=== PATIENT | female | born 1955 | race Caucasian/White ===

== ENCOUNTER 2016-06-25 16:24 | Emergency (ER) | payer BC ==
[~2016-06-25] VITALS: Ht 165.1 cm; Wt 82.0 kg
[~2016-06-25 16:24] MED LIST: ACET325T33 PO; ALBU18HF INHALATION; ALBU8.5H3 INH; ALBU8.5H5 INH; AMLO5TAB4 PO; AZIT250T94 PO; CIPR500T4 PO; CLOT24CR4 TOP; CLOT30CR24 TOP; FLUC150T17 PO; FLUT9.9S NASAL; GUAI118L22 PO; IBUP-1542 PO; PANT40TA4 PO; PRAV10TA43 PO; PRED20TA PO; SERT100T PO; TRIA15OI9 TOP
[2016-06-25 16:27] VITALS: Ht 165.1 cm; Wt 82.0 kg
[2016-06-25] MEDS ORDERED: SOD CHLORIDE 0.9% 1,000 ML IV STA (17:04)
[2016-06-25] MEDS ORDERED: ONDANSETRON 4 MG INJ IV STA (17:04)
--- NOTE | 2016-06-25 17:28 | ERD ---
ER Documentation Chief Complaint Date/Time DATE: 06/25/16 TIME: 17:26 Chief Complaint N&V X 1 WEEK, DENIES FEVER HPI 61-year-old female with a history of hypertension recently returned from [facility] 10 days ago comes in with nausea, vomiting, diarrhea and epigastric abdominal pain on and off for a week now. Patient reports nonbloody nonbilious emesis, loose stools, and epigastric abdominal pain. She denies any fevers. No headache. ROS All systems reviewed and are negative except as per history of present illness. Medications Home Meds Active Scripts Metronidazole* (Flagyl*) 500 Mg Tablet, 500 MG PO TID for 7 Days, TAB Prov:CHRISTIANA CRONIN PA-C 06/25/16 Azithromycin* (Zithromax*) 500 Mg Tablet, 500 MG PO DAILY for 3 Days, TAB Prov:CHRISTIANA CRONIN PA-C 06/25/16 Ondansetron (Ondansetron Odt) 4 Mg Tab.rapdis, 4 MG PO Q6H Y for NAUSEA AND/OR VOMITING, #10 TAB Prov:CHRISTIANA CRONIN PA-C 06/25/16 Ciprofloxacin Hcl* (Ciprofloxacin Hcl*) 500 Mg Tablet, 500 MG PO BID for 7 Days , TAB Prov:MERVIN MOYA PA-C 02/11/16 Fluticasone Propionate (Flonase Allergy Relief) 9.9 Ml [place].susp, 1 SPRAY NASAL DAILY, #1 BOTTLE TO EACH NOSTRIL Prov:FERNY WEN NP 01/27/16 Clotrimazole* (Clotrimazole* AF) 1% - 30 Gm Cream.gm., 1 APPLIC TOP BID for 7 Days, TUB Prov:FERNY WEN NP 01/27/16 Albuterol Sulfate* (Proair HFA*) 8.5 Gm Hfa.aer.ad, 2 PUFF INH Q4, #1 INHALER Prov:MERVIN MOYA PA-C 01/13/16 Ciprofloxacin Hcl* (Ciprofloxacin Hcl*) 500 Mg Tablet, 500 MG PO BID for 10 Days , TAB Prov:MERVIN MOYA PA-C 01/13/16 Triamcinolone Acetonide (Triamcinolone Acetonide) 0.5% - 15 Gm Oint..gm., 1 APPLIC TOP BID, #1 TUB Prov:EDILMA RIVERA DO 12/15/15 Prednisone* (Prednisone*) 20 Mg Tab, 40 MG PO DAILY for 4 Days, TAB Prov:EDILMA RIVERA DO 12/15/15 Prednisone* (Prednisone*) 20 Mg Tab, 40 MG PO DAILY for 4 Days, TAB Prov:CUAUHTEMOC ALTAMIRANO DO 11/04/15 Albuterol Sulfate* (Ventolin HFA*) 18 Gm Hfa.aer.ad, 2 PUFF INHALATION Q4H, #1 INHALER Prov:SHORTY DA SILVA PA-C 09/10/15 Prednisone* (Prednisone*) 20 Mg Tab, 40 MG PO DAILY for 4 Days, TAB Prov:SHORTY DA SILVA PA-C 09/10/15 Acetaminophen* (Tylenol*) 325 Mg Tablet, 2 TAB PO Q6 Y for PAIN AND OR ELEVATED TEMP, #20 TAB Prov:FERNY WEN NP 07/08/15 Guaifenesin/Codeine Phosphate (CHERATUSSIN AC SYRUP) 118 Ml Liquid, 10 ML PO Q6H Y for COUGH, #118 ML Prov:FERNY WEN NP 07/08/15 Ibuprofen* (Motrin*) 600 Mg Tab, 600 MG PO Q6, #14 TAB Prov:EDWARD OLSON MD 05/06/15 Clotrimazole* (Lotrimin* AF) 1% - 24 Gm Cream.gm., 1 APPLIC TOP BID for 7 Days, TUB Prov:EDWARD OLSON MD 05/06/15 Fluconazole* (Diflucan*) 150 Mg Tablet, 150 MG PO ONCE, #1 TAB Prov:EDWARD OLSON MD 05/06/15 Prednisone* (Prednisone*) 20 Mg Tab, 60 MG PO DAILY for 5 Days Prov:HAMMAD HOLLOWAY 10/26/14 Azithromycin* (Zithromax*) 250 Mg Tablet, 250 MG PO .MARILU DIRECTED, #6 TAB TAKE 500 MG (2 TABS) THE FIRST DAY THEN 250 MG (1 TAB) DAYS 2-5 Prov:HAMMAD HOLLOWAY 10/26/14 Albuterol Sulfate* (Albuterol Sulfate* HFA) 8.5 Gm Hfa.aer.ad, 1-2 PUFF INH Q4 Y for SHORTNESS OF BREATH, #1 EA Prov:HAMMAD HOLLOWAY 10/26/14 Reported Medications Pravastatin Sodium* (Pravastatin Sodium*) 10 Mg Tablet, 10 MG PO HS, TAB 11/04/15 Sertraline Hcl* (Zoloft*) 100 Mg Tablet, 100 MG PO DAILY, #30 TAB 11/04/15 Amlodipine Besylate* (Norvasc*) 5 Mg Tablet, 5 MG PO DAILY, TAB 11/04/15 Pantoprazole* (Pantoprazole*) 40 Mg Tablet.dr, 40 MG PO DAILY, TAB 11/04/15 Allergies Allergies: Coded Allergies: No Known Allergy (Unverified , 01/27/16) PMhx/Soc History of Surgery: No Anesthesia Reaction: No Hx Neurological Disorder: No Hx Respiratory Disorders: No Hx Cardiac Disorders: Yes (htn) Hx Psychiatric Problems: No Hx Miscellaneous Medical Probl: No Hx Alcohol Use: No Hx Substance Use: No Hx Tobacco Use: No Physical Exam Vitals Vital Signs Date Time Temp Pulse Resp B/P Pulse Ox O2 Delivery O2 Flow Rate FiO2 06/25/16 16:27 98.4 85 20 159/78 98 Physical Exam General: Well-developed, well-nourished. The patient appears in no acute distress. HEENT: Head is normocephalic, atraumatic. No scleral icterus. Neck: Supple. Nontender. Lungs: Clear to auscultation. Normal air movement. Heart: Regular rate and rhythm. S1 and S2 are normal. No murmurs, gallops, or rubs. Abdomen: Soft, mild epigastric discomfort, nondistended. Bowel sounds are normoactive. Extremities: No clubbing or cyanosis. Normal pulses. Moving extremities x 4. No weakness. Neurologic: Alert and oriented 3. No focal deficits. Skin: Normal turgor. No rash or lesions. Result Diagram: 06/25/16 1720 06/25/16 1720 Results 24 hrs Laboratory Tests Test 06/25/16 17:20 Alanine Aminotransferase (ALT/SGPT) 176IU/L Albumin 4.0g/dl Albumin/Globulin Ratio 1.33 Alkaline Phosphatase 103IU/L Anion Gap 16 Aspartate Amino Transf (AST/SGOT) 119IU/L Basophils # 0.010^3/ul Basophils % 0.5% Blood Urea Nitrogen 13mg/dl Calcium Level 9.3mg/dl Carbon Dioxide Level 27mmol/L Chloride Level 104mmol/L Creatinine 0.54mg/dl Direct Bilirubin 0.00mg/dl Eosinophils # 0.210^3/ul Eosinophils % 1.8% Globulin 3.00g/dl Glucose Level 103mg/dl Hematocrit 42.7% Hemoglobin 14.4g/dl Indirect Bilirubin 0.1mg/dl Lipase 100U/L Lymphocytes # 2.210^3/ul Lymphocytes % 25.3% Mean Corpuscular Hemoglobin 29.4pg Mean Corpuscular Hemoglobin Concent 33.8g/dl Mean Corpuscular Volume 87.1fl Mean Platelet Volume 9.1fl Monocytes # 0.610^3/ul Monocytes % 7.4% Neutrophils # 5.510^3/ul Neutrophils % 65.0% Nucleated Red Blood Cells # 0.010^3/ul Nucleated Red Blood Cells % 0.0/100WBC Platelet Count 74910^3/UL Potassium Level 4.1mmol/L Red Blood Count 4.9110^6/ul Red Cell Distribution Width 14.1% Sodium Level 143mmol/L Total Bilirubin 0.1mg/dl Total Protein 7.0g/dl Urine Bilirubin NEGATIVE Urine Clarity CLEAR Urine Color LT. YELLOW Urine Glucose NEGATIVE% Urine Hemoglobin NEGATIVE Urine Ketones NEGATIVE Urine Leukocyte Esterase 1+ Urine Microscopic RBC 0-2/HPF Urine Microscopic WBC 0-2/HPF Urine Nitrite NEGATIVE Urine Specific [place] 1.010 Urine Squamous Epithelial Cells RARE Urine Total Protein NEGATIVE Urine Urobilinogen 0.2 E.U./dL Urine pH 7.5 White Blood Count 8.510^3/ul Current Medications Medications (Trade) Dose Ordered Sig/Sal Route PRN Reason Start Time Stop Time Status Last Admin Dose Admin Sodium Chloride (NS) 1,000 ml @ 1,000 mls/hr Q1H STAT IV 06/25/16 17:04 06/25/16 18:03 DC 06/25/16 17:28 Ondansetron HCl (Zofran Inj) 4 mg ONCE STAT IV 06/25/16 17:04 06/25/16 17:05 DC 06/25/16 17:28 EKG: Reviewed by, Dr. Olson Rate/Rhythm: Normal Sinus Rhythm, rate of 76 QRS, ST, T-waves: No changes consistent w/ acute ischemia Impression: No evidence of ischemia or arrhythmia PROCEDURE: Right upper quadrant abdominal ultrasound. CLINICAL INDICATION: Abdominal pain TECHNIQUE: Nicole scale and color doppler ultrasound images of the right upper quadrant. COMPARISON: None FINDINGS: Pancreas: Visualized portions appear of normal echogenicity, no focal lesions. Liver: Morphology: Normal in size and contour. Echogenicity: Normal. Focal lesions: None. Main portal vein: Patent with hepatopetal flow. Biliary System: Normal appearing gallbladder wall. No gallstones seen. No intrahepatic biliary dilatation. Common bile duct measures 1.9 mm in maximal dimension. Kidneys: Right 9.1 cm in length. Right renal cortical thickness is preserved. Normal echogenicity. No hydronephrosis. No renal calculi. No focal lesions. No free fluid identified. IMPRESSION: Normal gallbladder without gallstones. Normal examination. RPTAT: AADD .Hammad Gabriel MD, MD Date Time Electronically viewed and signed by .Hammad Gabriel MD, MD on 06/25/2016 19:16 .B/ Procedures/MDM ED course: Labs and urine obtained, she was given a fluid bolus normal saline 1 L and Zofran 4 mg IV. She is feeling much better at time. MDM: 58-year-old female comes in with nausea, vomiting diarrhea over the past week after returning from [facility]. Clinically she is well appearing, hydrated, no signs of an acute surgical abdominal process. She does have mildly elevated LFTs, follow-up with gallbladder ultrasound was unremarkable. This is consistent with likely traveler's diarrhea and will be treated with Zithromax and Flagyl. No evidence of acute hepatobiliary process, pancreatitis , dissection, acute coronary syndrome Departure Diagnosis: Primary Impression: Nausea vomiting and diarrhea Condition: CHRISTIANA Raman PA-C Jun 25, 2016 17:27
[2016-06-25 17:40] LABS: BASOPHILS % 0.5 % (0.0-2.0); EOSINOPHILS # 0.2 10^3/ul (0.0-0.5); EOSINOPHILS % 1.8 % (0.0-7.0); HEMATOCRIT 42.7 % (37.0-47.0); HEMOGLOBIN 14.4 g/dl (12.0-16.0); LYMPHOCYTES # 2.2 10^3/ul (0.8-2.9); LYMPHOCYTES % 25.3 % (15.0-51.0); MEAN CORPUSCULAR HEMOGLOBIN 29.4 pg (29.0-33.0); MEAN CORPUSCULAR HGB CONC 33.8 g/dl (32.0-37.0); MEAN CORPUSCULAR VOLUME 87.1 fl (82.0-101.0); MEAN PLATELET VOLUME 9.1 fl (7.4-10.4); MONOCYTE # 0.6 10^3/ul (0.3-0.9); MONOCYTES % 7.4 % (0.0-11.0); NEUTROPHIL # 5.5 10^3/ul (1.6-7.5); PLATELET COUNT 236 10^3/UL (140-440); RED BLOOD COUNT 4.91 10^6/ul (4.20-5.40); RED CELL DISTRIBUTION WIDTH 14.1 % (11.5-14.5); UNCORRECTED WBC 8.5 10^3/ul (4.8-10.8); WHITE BLOOD COUNT 8.5 10^3/ul (4.8-10.8)
[2016-06-25 17:42] LABS: CONDITION 1
[2016-06-25 17:49] LABS: POTASSIUM 4.1 mmol/L (3.5-5.1)
[2016-06-25 17:50] LABS: CREATININE 0.54 mg/dl (0.44-1.00)
[2016-06-25 17:51] LABS: ADD UMIC YES; ALBUMIN/GLOBULIN RATIO 1.33; BILIRUBIN,INDIRECT 0.1 mg/dl (0-1.1); BILIRUBIN,TOTAL 0.1 mg/dl (0.2-1.3); CALCIUM 9.3 mg/dl (8.4-10.2); URINE BILIRUBIN (Dip) NEGATIVE (NEGATIVE); URINE BLOOD (Dip) NEGATIVE (NEGATIVE); URINE COLOR LT. YELLOW (YELLOW); URINE GLUCOSE (Dip) NEGATIVE (NEGATIVE); URINE KETONES (Dip) NEGATIVE (NEGATIVE); URINE LEUKOCYTE ESTERASE (Dip) 1+ (NEGATIVE); URINE NITRITE (Dip) NEGATIVE (NEGATIVE); URINE TOTAL PROTEIN (Dip) NEGATIVE (NEGATIVE); URINE UROBILINOGEN (Dip) 0.2 E.U./dL (0.1-1.0)
[2016-06-25 18:00] LABS: SQUAMOUS EPITHELIAL CELL,UR RARE; URINE RBCS 0-2 /HPF (0)
--- NOTE | 2016-06-25 19:17 | RADRPT ---
PROCEDURE: Right upper quadrant abdominal ultrasound. CLINICAL INDICATION: Abdominal pain TECHNIQUE: Nicole scale and color doppler ultrasound images of the right upper quadrant. COMPARISON: None FINDINGS: Pancreas: Visualized portions appear of normal echogenicity, no focal lesions. Liver: Morphology: Normal in size and contour. Echogenicity: Normal. Focal lesions: None. Main portal vein: Patent with hepatopetal flow. Biliary System: Normal appearing gallbladder wall. No gallstones seen. No intrahepatic biliary dilatation. Common bile duct measures 1.9 mm in maximal dimension. Kidneys: Right 9.1 cm in length. Right renal cortical thickness is preserved. Normal echogenicity. No hydronephrosis. No renal calculi. No focal lesions. No free fluid identified. IMPRESSION: Normal gallbladder without gallstones. Normal examination. RPTAT: AADD .Hammad Gabriel MD, MD Date Time Electronically viewed and signed by .Hammad Gabriel MD, on 06/25/2016 19:16 .B/
[2016-06-25] MEDS ORDERED: AZIT500T3 PO (19:35)
[2016-06-25] MEDS ORDERED: ONDA4TAB14 PO (19:35)
[2016-06-25] MEDS ORDERED: METR500T PO (19:35)
== END 2016-06-25 19:51 | disposition home or self-care (01) ==
LOC: FTE 16:24
DX: R11.2 Nausea with vomiting, unspecified (principal); R19.7 Diarrhea, unspecified; I10 Essential (primary) hypertension
CPT/HCPCS: 36415; 76705; 80053; 81001; 83690; 85025; 93005; 96361; 96374; 99285; J2405; J7030; 81003

== ENCOUNTER 2016-07-22 20:32 | Emergency (ER) | payer BC ==
[~2016-07-22] VITALS: Ht 160 cm; Wt 82.0 kg
[~2016-07-22 20:32] MED LIST changes: +AZIT500T3 PO; +METR500T PO; +ONDA4TAB14 PO
[2016-07-22 21:42] VITALS: Ht 160 cm; Wt 82.0 kg
[2016-07-22] MEDS ORDERED: DIPHTH/TET/ACEL PERTUSS (ADULT) 0.5 ML VIAL IM* ONE (23:30)
--- NOTE | 2016-07-22 23:36 | ERD ---
ER Documentation Chief Complaint Date/Time DATE: 07/22/16 TIME: 23:34 Chief Complaint sp trip and fall, facial abrasion, left knee abrasion HPI This 61-year-old female presents here in emergency department for complaints of left knee abrasion and pain, facial pain, headache after tripping and falling this morning. Patient tripped and fell, landed in the facial area and left knee area, some bruising and abrasions in the facial area, unknown loss of consciousness. Patient denies any dizziness. Patient denies any vomiting. Patient is complaining of pain on affected areas, throbbing pain, 4/and scale, is worse upon touching the area, and movement of the left knee. Patient denies any deformity. Patient's able to ambulate with steady gait. Patient denies any changes in balance or memory. Patient denies any dizziness. ROS All systems reviewed and are negative except as per history of present illness. Medications Home Meds Active Scripts Metronidazole* (Flagyl*) 500 Mg Tablet, 500 MG PO TID for 7 Days, TAB Prov:CHRISTIANA CRONIN PA-C 06/25/16 Azithromycin* (Zithromax*) 500 Mg Tablet, 500 MG PO DAILY for 3 Days, TAB Prov:CHRISTIANA CRONIN PA-C 06/25/16 Ondansetron (Ondansetron Odt) 4 Mg Tab.rapdis, 4 MG PO Q6H Y for NAUSEA AND/OR VOMITING, #10 TAB Prov:CHRISTIANA CRONIN PA-C 06/25/16 Ciprofloxacin Hcl* (Ciprofloxacin Hcl*) 500 Mg Tablet, 500 MG PO BID for 7 Days , TAB Prov:MERVIN MOYA PA-C 02/11/16 Fluticasone Propionate (Flonase Allergy Relief) 9.9 Ml [place].susp, 1 SPRAY NASAL DAILY, #1 BOTTLE TO EACH NOSTRIL Prov:FERNY WEN NP 01/27/16 Clotrimazole* (Clotrimazole* AF) 1% - 30 Gm Cream.gm., 1 APPLIC TOP BID for 7 Days, TUB Prov:FERNY WEN NP 01/27/16 Albuterol Sulfate* (Proair HFA*) 8.5 Gm Hfa.aer.ad, 2 PUFF INH Q4, #1 INHALER Prov:MERVIN MOYA PA-C 01/13/16 Ciprofloxacin Hcl* (Ciprofloxacin Hcl*) 500 Mg Tablet, 500 MG PO BID for 10 Days , TAB Prov:MERVIN MOYA PA-C 01/13/16 Triamcinolone Acetonide (Triamcinolone Acetonide) 0.5% - 15 Gm Oint..gm., 1 APPLIC TOP BID, #1 TUB [facility] 12/15/15 Prednisone* (Prednisone*) 20 Mg Tab, 40 MG PO DAILY for 4 Days, TAB [facility] 12/15/15 Prednisone* (Prednisone*) 20 Mg Tab, 40 MG PO DAILY for 4 Days, TAB Prov:CUAUHTEMOC ALTAMIRANO DO 11/04/15 Albuterol Sulfate* (Ventolin HFA*) 18 Gm Hfa.aer.ad, 2 PUFF INHALATION Q4H, #1 INHALER Prov:SHORTY DA SILVA PA-C 09/10/15 Prednisone* (Prednisone*) 20 Mg Tab, 40 MG PO DAILY for 4 Days, TAB Prov:SHORTY DA SILVA PA-C 09/10/15 Acetaminophen* (Tylenol*) 325 Mg Tablet, 2 TAB PO Q6 Y for PAIN AND OR ELEVATED TEMP, #20 TAB Prov:FERNY WEN NP 07/08/15 Guaifenesin/Codeine Phosphate (CHERATUSSIN AC SYRUP) 118 Ml Liquid, 10 ML PO Q6H Y for COUGH, #118 ML Prov:FERNY WEN NP 07/08/15 Ibuprofen* (Motrin*) 600 Mg Tab, 600 MG PO Q6, #14 TAB Prov:EDWARD DE LA ROSA MD 05/06/15 Clotrimazole* (Lotrimin* AF) 1% - 24 Gm Cream.gm., 1 APPLIC TOP BID for 7 Days, TUB Prov:EDWARD DE LA ROSA MD 05/06/15 Fluconazole* (Diflucan*) 150 Mg Tablet, 150 MG PO ONCE, #1 TAB Prov:EDWARD DE LA ROSA MD 05/06/15 Prednisone* (Prednisone*) 20 Mg Tab, 60 MG PO DAILY for 5 Days Prov:AVIS HOLLOWAY 10/26/14 Azithromycin* (Zithromax*) 250 Mg Tablet, 250 MG PO .ZPACK DIRECTED, #6 TAB TAKE 500 MG (2 TABS) THE FIRST DAY THEN 250 MG (1 TAB) DAYS 2-5 Prov:AVIS HOLLOWAY 10/26/14 Albuterol Sulfate* (Albuterol Sulfate* HFA) 8.5 Gm Hfa.aer.ad, 1-2 PUFF INH Q4 Y for SHORTNESS OF BREATH, #1 EA Prov:AVIS HOLLOWAY 10/26/14 Reported Medications Pravastatin Sodium* (Pravastatin Sodium*) 10 Mg Tablet, 10 MG PO HS, TAB 11/04/15 Sertraline Hcl* (Zoloft*) 100 Mg Tablet, 100 MG PO DAILY, #30 TAB 11/04/15 Amlodipine Besylate* (Norvasc*) 5 Mg Tablet, 5 MG PO DAILY, TAB 11/04/15 Pantoprazole* (Pantoprazole*) 40 Mg Tablet.dr, 40 MG PO DAILY, TAB 11/04/15 Allergies Allergies: Coded Allergies: No Known Allergy (Unverified , 01/27/16) PMhx/Soc History of Surgery: Yes (finger surgery) Anesthesia Reaction: No Hx Neurological Disorder: No Hx Respiratory Disorders: No Hx Cardiac Disorders: Yes (htn, dyslipidemia) Hx Psychiatric Problems: No Hx Miscellaneous Medical Probl: No (ARTHRITIS) Hx Alcohol Use: No Hx Substance Use: No Hx Tobacco Use: No FmHx Family History: No coronary disease, No diabetes, No other Physical Exam Vitals Vital Signs Date Time Temp Pulse Resp B/P Pulse Ox O2 Delivery O2 Flow Rate FiO2 07/22/16 21:42 98.2 81 20 178/90 100 Physical Exam GENERAL: The patient is well developed and appropriate for usual state of health, in no apparent distress. CHEST: Clear to auscultation bilaterally. There are no rales, wheezes or rhonchi. HEART: Regular rate and rhythm. No murmurs, clicks, rubs or gallops. No S3 or S4. ABDOMEN: Soft, nontender and nondistended. Good bowel sounds. No rebound or guarding. No gross peritonitis. No gross organomegaly or masses. No Cervantes sign or McBurney point tenderness. BACK: No midline or flank tenderness. EXTREMITIES: Able to do full range of motion of the left knee without any restriction. Equal pulses bilaterally. Full range of motion of other joints of the body. Grossly neurovascularly intact. NEURO: Alert and oriented. Cranial nerves 2-12 intact. Motor strength in all 4 extremities with 5/5 strength. Sensation grossly intact. Normal speech and gait. Negative Romberg sign. Negative pronator drift. Bilateral eyes are PERRL EOM intact. SKIN: Noted ecchymosis and abrasion all over the facial area, bruising and abrasions noted in the left knee. There is no apparent rash or petechia. The skin is warm and dry. HEMATOLOGIC AND LYMPHATIC: There is no evidence of excessive bruising or lymphedema. No gross cervical, axillary, or inguinal lymphadenopathy. Results 24 hrs Current Medications Medications (Trade) Dose Ordered Sig/Sal Route PRN Reason Start Time Stop Time Status Last Admin Dose Admin Diphtheria/ Tetanus/Acell Pertussis (Adacel) 0.5 ml ONCE ONCE IM* 07/22/16 23:30 07/22/16 23:31 DC Tdap was given to prevent tetanus. Patient tolerated medication well. PROCEDURE: CT brain without contrast CLINICAL INDICATION: Head injury. Post traumatic headaches. TECHNIQUE: A CT of the brain was performed utilizing axial sections from the skull base through the vertex without contrast. Sagittal and coronal images were also reformatted. The exam CTDIvol = 44.40 mGy and DLP = 810.25 mGy-cm. COMPARISON: None available FINDINGS: No acute intracranial hemorrhage is identified. There is no mass effect or midline shift. No extra-axial fluid collection is seen. The ventricles and sulci are within normal limits for size and configuration for the patient's provided age of 61 years. The density of the brain is within normal limits. Nicole-white differentiation is preserved. The osseous structures are unremarkable. The mastoid air cells and visualized paranasal sinuses are clear. RPTAT:HJJR IMPRESSION: Unremarkable noncontrast CT of the brain for the patient's age. Physician Shannan Date Time Electronically viewed and signed by Physician Shannan on 07/23/2016 00:07 JR/ CC: JANA BEST CATALOGUE LIBRARIAN PROCEDURE: CT facial bones without contrast CLINICAL INDICATION: Facial bone pain. TECHNIQUE: A CT of the face without contrast was performed utilizing axial sections from the mandible through the orbits. Coronal and sagittal images were also reformatted. The exam CTDIvol = 29.45 mGy and DLP = 547.58 mGy-cm. COMPARISON: None available. FINDINGS: Frontal bone: Intact with the sinuses clear bilaterally. No fracture is present. Ethmoid bone: Incidental osteoma in the right middle air cells, the sinuses are clear. The medial orbital salas are intact. Maxilla: Intact, the sinuses demonstrate trace mucosal thickening along the left floor, the right side is clear. Nasal bones: Intact bilaterally. Zygomata: Intact bilaterally. Sphenoid bone: Intact, the sinuses are clear. Mandible: Intact, the temporal mandibular joints are unremarkable. Temporal bones: No fractures are seen, the mastoid air cells are clear bilaterally. Soft tissues: Unremarkable. RPTAT:HJJR IMPRESSION: 1. No evidence of acute facial bone abnormality. 2. Incidental tiny osteoma within the right ethmoid air cells. 3. Trace mucosal thickening of the left maxillary sinus. Physician Shannan Date Time Electronically viewed and signed by Ricky Hendricks Physician on 07/23/2016 00:10 JR/ CC: JANA BEST CATALOGUE LIBRARIAN PROCEDURE: XR Knee. CLINICAL INDICATION: Post traumatic left knee pain after a fall TECHNIQUE: AP, cross-table lateral and oblique views of the left knee were obtained. COMPARISON: None. FINDINGS: No fracture or osseous lesion is identified. There is no evidence for dislocation. Mineralization is within normal limits. Mild narrowing of the medial and lateral joint spaces is present. No evidence of effusion or soft tissue swelling is identified. RPTAT:HJJR IMPRESSION: Mild joint space narrowing without acute post traumatic abnormality of the left knee. Physician Shannan Date Time Electronically viewed and signed by Ricky Hendricks Physician on 07/23/2016 00:45 JR/ CC: JANA BEST CATALOGUE LIBRARIAN Procedures/MDM Medical Decision Making: Patient's pain is most likely consistent with a contusion or a sprain. There is no suspicion for neurovascular compromise. Patient has intact sensation and circulation of the affected extremity. There is low suspicion for septic arthritis. Patient does not have any fever. Radiology exams of the affected area does not show any fracture or dislocation. Patient's headache was female from head concussion. Patient has also has multiple abrasions and contusions in the facial area. There is low suspicion for neurological emergencies at this time since patients neurologic exam is normal. Patient did not have any vomiting, changes in balance or memory after incident. Patients CT scan of the head does not show any neurological emergencies at this time. no Fractures noted in the face. Disposition: Home. Patient is given prescription for Tylenol for pain and tramadol for severe pain. Patient was advised to elevate the affected area and apply ice on affected area. Patient was advised that if symptoms are worse, numbness, tingling, high fever, unable to move joint, worsening symptoms, to return to emergency department immediately. Otherwise, patient is advised to follow up with the primary care doctor in 5-7 days for reevaluation of symptoms. : Departure Diagnosis: Primary Impression: Concussion Encounter type: initial encounter Loss of consciousness presence/duration: without LOC Qualified Code: S06.0X0A - Concussion, without loss of consciousness, initial encounter Additional Impressions: Facial contusion Encounter type: initial encounter Qualified Code: S00.83XA - Facial contusion, initial encounter Abrasions of multiple sites Left knee pain Chronicity: acute Qualified Code: M25.562 - Acute pain of left knee Condition: Stable Patient Instructions: Abrasion, Concussion, Facial Contusion, No Wakeup, Knee Pain, Uncertain Cause Additional Instructions: Patient is given prescription for Tylenol for pain and tramadol for severe pain. Patient was advised to elevate the affected area and apply ice on affected area. Patient was advised that if symptoms are worse, numbness, tingling, high fever, unable to move joint, worsening symptoms, to return to emergency department immediately. Otherwise, patient is advised to follow up with the primary care doctor in 5-7 days for reevaluation of symptoms.: JANA BEST NP Jul 22, 2016 23:36
--- NOTE | 2016-07-23 00:07 | RADRPT ---
PROCEDURE: CT brain without contrast CLINICAL INDICATION: Head injury. Post traumatic headaches. TECHNIQUE: A CT of the brain was performed utilizing axial sections from the skull base through th e vertex without contrast. Sagittal and coronal images were also reformatted. The exam CTDIvol = 44. 40 mGy and DLP = 810.25 mGy-cm. COMPARISON: None available FINDINGS: No acute intracranial hemorrhage is identified. There is no mass effect or midline shift. No extra -axial fluid collection is seen. The ventricles and sulci are within normal limits for size and con figuration for the patient's provided age of 61 years. The density of the brain is within normal li mits. Nicole-white differentiation is preserved. The osseous structures are unremarkable. The mastoid air cells and visualized paranasal sinuses are clear. RPTAT:HJJR IMPRESSION: Unremarkable noncontrast CT of the brain for the patient's age. Physician Shannan Date Time Electronically viewed and signed by Physician Shannan on 07/23/2016 00:07 /
--- NOTE | 2016-07-23 00:11 | RADRPT ---
PROCEDURE: CT facial bones without contrast CLINICAL INDICATION: Facial bone pain. TECHNIQUE: A CT of the face without contrast was performed utilizing axial sections from the kristal ble through the orbits. Coronal and sagittal images were also reformatted. The exam CTDIvol = 29.45 mGy and DLP = 547.58 mGy-cm. COMPARISON: None available. FINDINGS: Frontal bone: Intact with the sinuses clear bilaterally. No fracture is present. Ethmoid bone: Incidental osteoma in the right middle air cells, the sinuses are clear. The medial orbital salas are intact. Maxilla: Intact, the sinuses demonstrate trace mucosal thickening along the left floor, the right s trell is clear. Nasal bones: Intact bilaterally. Zygomata: Intact bilaterally. Sphenoid bone: Intact, the sinuses are clear. Mandible: Intact, the temporal mandibular joints are unremarkable. Temporal bones: No fractures are seen, the mastoid air cells are clear bilaterally. Soft tissues: Unremarkable. RPTAT:HJJR IMPRESSION: 1. No evidence of acute facial bone abnormality. 2. Incidental tiny osteoma within the right ethmoid air cells. 3. Trace mucosal thickening of the left maxillary sinus. Physician Shannan Date Time Electronically viewed and signed by Physician Shannan on 07/23/2016 00:10 /
--- NOTE | 2016-07-23 00:46 | RADRPT ---
PROCEDURE: XR Knee. CLINICAL INDICATION: Post traumatic left knee pain after a fall TECHNIQUE: AP, cross-table lateral and oblique views of the left knee were obtained. COMPARISON: None. FINDINGS: No fracture or osseous lesion is identified. There is no evidence for dislocation. Mineralization is within normal limits. Mild narrowing of the medial and lateral joint spaces is present. No evid ence of effusion or soft tissue swelling is identified. RPTAT:HJJR IMPRESSION: Mild joint space narrowing without acute post traumatic abnormality of the left knee. Physician Shannan Date Time Electronically viewed and signed by Physician Shannan on 07/23/2016 00:45 /
[2016-07-23] MEDS ORDERED: ACET500C5 PO (01:17)
[2016-07-23] MEDS ORDERED: TRAM50TA2 PO (01:17)
== END 2016-07-23 01:40 | disposition home or self-care (01) ==
LOC: FTE 20:32
DX: S06.0X0A Concussion without loss of consciousness, initial encounter (principal); S00.83XA Contusion of other part of head, initial encounter; I10 Essential (primary) hypertension; W01.0XXA Fall on same level from slipping, tripping and stumbling without subsequent striking against object, initial encounter; Y92.9 Unspecified place or not applicable; Z23 Encounter for immunization
CPT/HCPCS: 70450; 70486; 73562; 90471; 90715

== ENCOUNTER 2016-09-26 12:12 | Emergency (ER) | payer BC, OTHER ==
[~2016-09-26] VITALS: Ht 165.1 cm; Wt 82.5 kg
[~2016-09-26 12:12] MED LIST changes: +ACET500C5 PO; +TRAM50TA2 PO
[2016-09-26 12:23] VITALS: Ht 165.1 cm; Wt 82.5 kg
[2016-09-26] MEDS ORDERED: CEFTRIAXONE 1 GM INJ IM ONE (13:00)
[2016-09-26] MEDS ORDERED: LIDOCAINE 1% (MDV) 20 ML INJ SC ONE (13:00)
[2016-09-26] MEDS ORDERED: FLUC150T17 PO (13:02)
[2016-09-26] MEDS ORDERED: CEPH-443 PO (13:02)
--- NOTE | 2016-09-26 13:05 | ERD ---
ER Documentation Chief Complaint Date/Time DATE: 09/26/16 TIME: 13:02 Chief Complaint painful urination x 2 weeks HPI 61-year-old woman presents with continued dysuria and increased urinary frequency after being diagnosed with urinary tract infection recently. She has been using about 4 days of nitrofurantoin therapy without relief. Patient denies fevers or chills, no back pain, no chest pain or shortness of breath, no vaginal discharge or weight loss. ROS All systems reviewed and are negative except as per history of present illness. Medications Home Meds Active Scripts Fluconazole* (Diflucan*) 150 Mg Tablet, 150 MG PO ONCE, #1 TAB Prov:DOMINIQUE SANCHEZ MD 09/26/16 Cephalexin* (Keflex*) 500 Mg Capsule, 500 MG PO TID for 7 Days, CAP Prov:DOMINIQUE SANCHEZ MD 09/26/16 Tramadol HCl (Tramadol HCl) 50 Mg Tablet, 50 MG PO Q6, #20 TAB Prov:JANA BEST NP 07/23/16 Acetaminophen* (Tylophen*) 500 Mg Capsule, 1 CAP PO Q6H Y for PAIN AND OR ELEVATED TEMP, #20 CAP Prov:JANA BEST NP 07/23/16 Metronidazole* (Flagyl*) 500 Mg Tablet, 500 MG PO TID for 7 Days, TAB Prov:CHRISTIANA CRONIN PA-C 06/25/16 Azithromycin* (Zithromax*) 500 Mg Tablet, 500 MG PO DAILY for 3 Days, TAB Prov:CHRISTIANA CRONIN PA-C 06/25/16 Ondansetron (Ondansetron Odt) 4 Mg Tab.rapdis, 4 MG PO Q6H Y for NAUSEA AND/OR VOMITING, #10 TAB Prov:CHRISTIANA CRONIN PA-C 06/25/16 Ciprofloxacin Hcl* (Ciprofloxacin Hcl*) 500 Mg Tablet, 500 MG PO BID for 7 Days , TAB Prov:MERVIN MOYA PA-C 02/11/16 Fluticasone Propionate (Flonase Allergy Relief) 9.9 Ml [place].susp, 1 SPRAY NASAL DAILY, #1 BOTTLE TO EACH NOSTRIL Prov:FERNY WEN NP 01/27/16 Clotrimazole* (Clotrimazole* AF) 1% - 30 Gm Cream.gm., 1 APPLIC TOP BID for 7 Days, TUB Prov:FERNY WEN NP 01/27/16 Albuterol Sulfate* (Proair HFA*) 8.5 Gm Hfa.aer.ad, 2 PUFF INH Q4, #1 INHALER Prov:MERVIN MOYA PA-C 01/13/16 Ciprofloxacin Hcl* (Ciprofloxacin Hcl*) 500 Mg Tablet, 500 MG PO BID for 10 Days , TAB Prov:MERVIN MOYA PA-C 01/13/16 Triamcinolone Acetonide (Triamcinolone Acetonide) 0.5% - 15 Gm Oint..gm., 1 APPLIC TOP BID, #1 TUB Prov:[facility] 12/15/15 Prednisone* (Prednisone*) 20 Mg Tab, 40 MG PO DAILY for 4 Days, TAB [facility] 12/15/15 Prednisone* (Prednisone*) 20 Mg Tab, 40 MG PO DAILY for 4 Days, TAB Prov:CUAUHTEMOC ALTAMIRANO 11/04/15 Albuterol Sulfate* (Ventolin HFA*) 18 Gm Hfa.aer.ad, 2 PUFF INHALATION Q4H, #1 INHALER Prov:SHORTY DA SILVA PA-C 09/10/15 Prednisone* (Prednisone*) 20 Mg Tab, 40 MG PO DAILY for 4 Days, TAB Prov:SHORTY DA SILVA PA-C 09/10/15 Acetaminophen* (Tylenol*) 325 Mg Tablet, 2 TAB PO Q6 Y for PAIN AND OR ELEVATED TEMP, #20 TAB Prov:FERNY WEN NP 07/08/15 Guaifenesin/Codeine Phosphate (CHERATUSSIN AC SYRUP) 118 Ml Liquid, 10 ML PO Q6H Y for COUGH, #118 ML Prov:FERNY WEN NP 07/08/15 Ibuprofen* (Motrin*) 600 Mg Tab, 600 MG PO Q6, #14 TAB Prov:EDWARD DE LA ROSA MD 05/06/15 Clotrimazole* (Lotrimin* AF) 1% - 24 Gm Cream.gm., 1 APPLIC TOP BID for 7 Days, TUB Prov:EDWARD DE LA ROSA MD 05/06/15 Fluconazole* (Diflucan*) 150 Mg Tablet, 150 MG PO ONCE, #1 TAB Prov:EDWARD DE LA ROSA MD 05/06/15 Prednisone* (Prednisone*) 20 Mg Tab, 60 MG PO DAILY for 5 Days Prov:KAVITANAVIAVIS Brittnee 10/26/14 Azithromycin* (Zithromax*) 250 Mg Tablet, 250 MG PO .ZPACK DIRECTED, #6 TAB TAKE 500 MG (2 TABS) THE FIRST DAY THEN 250 MG (1 TAB) DAYS 2-5 Prov:KUNAVIS MIX 10/26/14 Albuterol Sulfate* (Albuterol Sulfate* HFA) 8.5 Gm Hfa.aer.ad, 1-2 PUFF INH Q4 Y for SHORTNESS OF BREATH, #1 EA Prov:KAVITANAVIAVIS Brittnee 10/26/14 Reported Medications Pravastatin Sodium* (Pravastatin Sodium*) 10 Mg Tablet, 10 MG PO HS, TAB 11/04/15 Sertraline Hcl* (Zoloft*) 100 Mg Tablet, 100 MG PO DAILY, #30 TAB 11/04/15 Amlodipine Besylate* (Norvasc*) 5 Mg Tablet, 5 MG PO DAILY, TAB 11/04/15 Pantoprazole* (Pantoprazole*) 40 Mg Tablet.dr, 40 MG PO DAILY, TAB 11/04/15 Allergies Allergies: Coded Allergies: No Known Allergy (Unverified , 01/27/16) PMhx/Soc Hypertension, gastritis, anxiety History of Surgery: Yes (finger surgery) Anesthesia Reaction: No Hx Neurological Disorder: No Hx Respiratory Disorders: No Hx Cardiac Disorders: Yes (htn, dyslipidemia) Hx Psychiatric Problems: No Hx Miscellaneous Medical Probl: No (ARTHRITIS) Hx Alcohol Use: No Hx Substance Use: No Hx Tobacco Use: No FmHx Family History: No diabetes Physical Exam Vitals Vital Signs Date Time Temp Pulse Resp B/P Pulse Ox O2 Delivery O2 Flow Rate FiO2 09/26/16 12:23 98.8 80 18 125/61 96 Physical Exam GENERAL: Well-developed, well-nourished, well-hydrated, in no apparent distress , looks nontoxic in appearance HEENT: Moist mucous membranes, pink conjunctiva, no cervical spine tenderness or step-off deformities, no goiter, no jaundice or icterus, extraocular movements intact without pain. No submandibular induration, and no pharyngeal erythema NEURO: Alert and oriented 3, cranial nerves II through XII intact bilaterally, pupils equal round reactive to light, no focal deficits or facial asymmetry, sensation intact distally Strength 5/5 in upper and lower extremities bilaterally CARDIAC: Regular rate and rhythm, no murmurs rubs or gallops LUNGS: Clear bilaterally no wheezing crackles or stridor ABDOMEN: Soft nontender, no guarding, no rigidity, no rebound, no psoas sign no obturator sign. Normoactive bowel sounds SKIN: Warm and dry to touch, no abrasions, contusions, or hematomas, no lacerations, no ecchymosis, no target lesions, and without ulcers EXTREMITIES: No clubbing cyanosis or edema, calves are bilaterally symmetrical, no Homans sign, no popliteal cord sign. Distal pulses equal and bilateral PSYCH: Normal affect without agitation or irritability Results 24 hrs Current Medications Medications (Trade) Dose Ordered Sig/Sal Route PRN Reason Start Time Stop Time Status Last Admin Dose Admin Lidocaine (Xylocaine 1% (Mdv) 20 ml) 20 ml ONCE ONCE SC 09/26/16 13:00 09/26/16 13:01 DC Ceftriaxone Sodium (Rocephin) 1 gm ONCE ONCE IM 09/26/16 13:00 09/26/16 13:01 DC Procedures/MDM I administered ceftriaxone 1 g intramuscular injection here in the emergency department and recommended discontinuation of nitrofurantoin. Urine analysis was positive for infection and urine cultures have also been ordered results are pending I will follow-up. I will treat her as an outpatient with cephalexin therapy as well as fluconazole 150 mg 1 tablet after antibiotics are complete. I also recommended she have her urine analysis repeated by her PMD after antibiotics complete Differential diagnoses considered, included but not limited to acute coronary syndrome, pulmonary embolism, aortic dissection, abdominal aortic aneurysm, sepsis, stroke, meningitis, encephalitis, pneumonia, appendicitis, cholecystitis , bowel obstruction, pyelonephritis, nephrolithiasis, cystitis, as well as metabolic, hematologic, and electrolyte abnormalities. As well as abscess, cellulitis, fractures, and dislocations. Patient feels much better at this time, and vital signs are normal, symptoms have improved. I did give strict instructions to return to the ED if symptoms continue or worsen, patient will otherwise follow-up with primary care physician. Patient understood instructions and agreed to plan. Disclaimer: Inadvertent spelling or grammatical errors are likely due to EHR/ dictation software use and do not reflect on the overall quality of patient care. Departure Diagnosis: Primary Impression: UTI (urinary tract infection) Urinary tract infection type: acute cystitis Hematuria presence: without hematuria Qualified Code: N30.00 - Acute cystitis without hematuria Condition: Good Patient Instructions: Bladder Infection, Female (Adult) Referrals: DEE ESCOBAR (PCP) DOMINIQUE SANCHEZ MD September 26, 2016 13:05
[2016-09-26 13:21] LABS: ADD UMIC YES; URINE BILIRUBIN (Dip) NEGATIVE (NEGATIVE); URINE BLOOD (Dip) NEGATIVE (NEGATIVE); URINE COLOR YELLOW (YELLOW); URINE GLUCOSE (Dip) NEGATIVE (NEGATIVE); URINE KETONES (Dip) NEGATIVE (NEGATIVE); URINE LEUKOCYTE ESTERASE (Dip) TRACE (NEGATIVE); URINE NITRITE (Dip) NEGATIVE (NEGATIVE); URINE TOTAL PROTEIN (Dip) NEGATIVE (NEGATIVE); URINE UROBILINOGEN (Dip) 0.2 E.U./dL (0.1-1.0)
[2016-09-26 13:33] LABS: URINE RBCS 0-2 /HPF (0)
[2016-09-26 13:34] LABS: BACTERIA,URINE RARE
== END 2016-09-26 13:29 | disposition home or self-care (01) ==
LOC: FTE 12:12
DX: N30.00 Acute cystitis without hematuria (principal); I10 Essential (primary) hypertension
CPT/HCPCS: 81001; 87086; 96372; J0696; Z7502; Z7610; 81003

== ENCOUNTER 2016-10-12 17:37 | Emergency (ER) | payer BC, OTHER ==
[~2016-10-12] VITALS: Ht 165.1 cm; Wt 83.5 kg
[~2016-10-12 17:37] MED LIST changes: +CEPH-443 PO
[2016-10-12 17:38] VITALS: Ht 165.1 cm; Wt 83.5 kg
[2016-10-12 19:50] LABS: ADD UMIC YES; URINE BILIRUBIN (Dip) NEGATIVE (NEGATIVE); URINE BLOOD (Dip) NEGATIVE (NEGATIVE); URINE COLOR LT. YELLOW (YELLOW); URINE GLUCOSE (Dip) NEGATIVE (NEGATIVE); URINE KETONES (Dip) NEGATIVE (NEGATIVE); URINE LEUKOCYTE ESTERASE (Dip) TRACE (NEGATIVE); URINE NITRITE (Dip) NEGATIVE (NEGATIVE); URINE TOTAL PROTEIN (Dip) NEGATIVE (NEGATIVE); URINE UROBILINOGEN (Dip) 0.2 E.U./dL (0.1-1.0)
[2016-10-12 20:02] LABS: URINE RBCS 0-2 /HPF (0)
[2016-10-12] MEDS ORDERED: NITR-58 PO (20:20)
--- NOTE | 2016-10-12 20:27 | ERD ---
ER Documentation Chief Complaint Date/Time DATE: 10/12/16 TIME: 20:22 Chief Complaint r side back pain HPI Patient is a 61-year-old female with a history of recurrent UTIs who presents to the emergency department right-sided flank pain, dysuria, frequency. She states her symptoms began 1 week ago. Patient denies any fevers or chills. Patient denies any chest pain, shortness of breath, nausea, vomiting, abdominal pain. Patient does report suprapubic frequency. Patient denies any hematuria. Per chart review, patient's most recent urine culture was negative for any growth 09-26-16. ROS All systems reviewed and are negative except as per history of present illness. Medications Home Meds Active Scripts Nitrofurantoin Monohyd Macrocr* (Macrobid*) 100 Mg Capsr, 100 MG PO BID for 5 Days, CAP Prov:MASOOD STEWART PA-C 10/12/16 Fluconazole* (Diflucan*) 150 Mg Tablet, 150 MG PO ONCE, #1 TAB Prov:DOMINIQUE SANCHEZ MD 09/26/16 Cephalexin* (Keflex*) 500 Mg Capsule, 500 MG PO TID for 7 Days, CAP Prov:DOMINIQUE SANCHEZ MD 09/26/16 Tramadol HCl (Tramadol HCl) 50 Mg Tablet, 50 MG PO Q6, #20 TAB Prov:JANA BEST NP 07/23/16 Acetaminophen* (Tylophen*) 500 Mg Capsule, 1 CAP PO Q6H Y for PAIN AND OR ELEVATED TEMP, #20 CAP Prov:JANA BEST NP 07/23/16 Metronidazole* (Flagyl*) 500 Mg Tablet, 500 MG PO TID for 7 Days, TAB Prov:CHRISTIANA CRONIN PA-C 06/25/16 Azithromycin* (Zithromax*) 500 Mg Tablet, 500 MG PO DAILY for 3 Days, TAB Prov:CHRISTIANA CRONIN PA-C 06/25/16 Ondansetron (Ondansetron Odt) 4 Mg Tab.rapdis, 4 MG PO Q6H Y for NAUSEA AND/OR VOMITING, #10 TAB Prov:CHRISTIANA CRONIN PA-C 06/25/16 Ciprofloxacin Hcl* (Ciprofloxacin Hcl*) 500 Mg Tablet, 500 MG PO BID for 7 Days , TAB Prov:MERVIN MOYA PA-C 02/11/16 Fluticasone Propionate (Flonase Allergy Relief) 9.9 Ml [place].susp, 1 SPRAY NASAL DAILY, #1 BOTTLE TO EACH NOSTRIL Prov:FERNY WEN NP 01/27/16 Clotrimazole* (Clotrimazole* AF) 1% - 30 Gm Cream.gm., 1 APPLIC TOP BID for 7 Days, TUB Prov:FERNY WEN NP 01/27/16 Albuterol Sulfate* (Proair HFA*) 8.5 Gm Hfa.aer.ad, 2 PUFF INH Q4, #1 INHALER Prov:MERVIN MOYA PA-C 01/13/16 Ciprofloxacin Hcl* (Ciprofloxacin Hcl*) 500 Mg Tablet, 500 MG PO BID for 10 Days , TAB Prov:MERVIN MOYA PA-C 01/13/16 Triamcinolone Acetonide (Triamcinolone Acetonide) 0.5% - 15 Gm Oint..gm., 1 APPLIC TOP BID, #1 TUB Prov:EDILMA RIVERA DO 12/15/15 Prednisone* (Prednisone*) 20 Mg Tab, 40 MG PO DAILY for 4 Days, TAB Prov:EDILMA RIVERA DO 12/15/15 Prednisone* (Prednisone*) 20 Mg Tab, 40 MG PO DAILY for 4 Days, TAB Prov:CUAUHTEMOC ALTAMIRANO DO 11/04/15 Albuterol Sulfate* (Ventolin HFA*) 18 Gm Hfa.aer.ad, 2 PUFF INHALATION Q4H, #1 INHALER Prov:SHORTY DA SILVA PA-C 09/10/15 Prednisone* (Prednisone*) 20 Mg Tab, 40 MG PO DAILY for 4 Days, TAB Prov:SHORTY DA SILVAC 09/10/15 Acetaminophen* (Tylenol*) 325 Mg Tablet, 2 TAB PO Q6 Y for PAIN AND OR ELEVATED TEMP, #20 TAB Prov:FERNY WEN NP 07/08/15 Guaifenesin/Codeine Phosphate (CHERATUSSIN AC SYRUP) 118 Ml Liquid, 10 ML PO Q6H Y for COUGH, #118 ML Prov:FERNY WEN NP 07/08/15 Ibuprofen* (Motrin*) 600 Mg Tab, 600 MG PO Q6, #14 TAB Prov:EDWARD DE LA ROSA MD 05/06/15 Clotrimazole* (Lotrimin* AF) 1% - 24 Gm Cream.gm., 1 APPLIC TOP BID for 7 Days, TUB Prov:EDWARD DE LA ROSA MD 05/06/15 Fluconazole* (Diflucan*) 150 Mg Tablet, 150 MG PO ONCE, #1 TAB Prov:EDWARD DE LA ROSA MD 05/06/15 Prednisone* (Prednisone*) 20 Mg Tab, 60 MG PO DAILY for 5 Days Prov:AVIS HOLLOWAY 10/26/14 Azithromycin* (Zithromax*) 250 Mg Tablet, 250 MG PO .ZPACK DIRECTED, #6 TAB TAKE 500 MG (2 TABS) THE FIRST DAY THEN 250 MG (1 TAB) DAYS 2-5 Prov:AVIS HOLLOWAY 10/26/14 Albuterol Sulfate* (Albuterol Sulfate* HFA) 8.5 Gm Hfa.aer.ad, 1-2 PUFF INH Q4 Y for SHORTNESS OF BREATH, #1 EA Prov:AVIS HOLLOWAY 10/26/14 Reported Medications Pravastatin Sodium* (Pravastatin Sodium*) 10 Mg Tablet, 10 MG PO HS, TAB 11/04/15 Sertraline Hcl* (Zoloft*) 100 Mg Tablet, 100 MG PO DAILY, #30 TAB 11/04/15 Amlodipine Besylate* (Norvasc*) 5 Mg Tablet, 5 MG PO DAILY, TAB 11/04/15 Pantoprazole* (Pantoprazole*) 40 Mg Tablet.dr, 40 MG PO DAILY, TAB 11/04/15 Allergies Allergies: Coded Allergies: No Known Allergy (Unverified , 01/27/16) PMhx/Soc History of Surgery: Yes (finger surgery) Anesthesia Reaction: No Hx Neurological Disorder: No Hx Respiratory Disorders: No Hx Cardiac Disorders: Yes (htn, dyslipidemia) Hx Psychiatric Problems: No Hx Miscellaneous Medical Probl: No (ARTHRITIS) Hx Alcohol Use: No Hx Substance Use: No Hx Tobacco Use: No Smoking Status: Never smoker FmHx Family History: No diabetes Physical Exam Vitals Vital Signs Date Time Temp Pulse Resp B/P Pulse Ox O2 Delivery O2 Flow Rate FiO2 6/3/17 17:38 97.3 79 18 160/70 98 Physical Exam GENERAL: Well-developed, well-nourished female. Appears in no acute distress. HEAD: Normocephalic, atraumatic. EYES: Pupils are equally reactive bilaterally. EOMs grossly intact. No conjunctival erythema. ENT: Moist mucous membranes. No uvula deviation. No kissing tonsils. NECK: Supple. No meningismus. Normal range of motion of the neck. LUNG: Clear to auscultation bilaterally. No rhonchi, wheezing, rales or coarse breath sounds. HEART: Regular rate and rhythm. No murmurs, rubs or gallops. ABDOMEN: No scars, ecchymosis or rashes noted. Soft and nondistended. Tenderness of palpation of the suprapubic region. Positive bowel sounds in all four quadrants. No rebound tenderness, no guarding. (-) McBurney's point tenderness. No CVA tenderness. BACK: No midline tenderness. EXTREMITIES: Equal pulses bilaterally. No peripheral clubbing, cyanosis or edema. No unilateral leg swelling. NEUROLOGIC: Alert and oriented. Moving all four extremities without any difficulty. Normal speech. Steady gait. SKIN: Normal color. Warm and dry. No rashes or lesions. Results 24 hrs Laboratory Tests Test 10/12/16 19:13 Urine Color LT. YELLOW Urine Clarity CLEAR Urine pH 5.5 Urine Specific [place] 1.020 Urine Ketones NEGATIVE Urine Nitrite NEGATIVE Urine Bilirubin NEGATIVE Urine Urobilinogen 0.2 E.U./dL Urine Leukocyte Esterase TRACE Urine Microscopic RBC 0-2/HPF Urine Microscopic WBC 0-2/HPF Urine Epithelial Cells RARE Urine Hemoglobin NEGATIVE Urine Glucose NEGATIVE% Urine Total Protein NEGATIVE Procedures/MDM MEDICAL DECISION MAKING: This is a 61-year-old female who presents with dysuria, frequency and suprapubic pain 1 week. Vital signs were reviewed. Patient was afebrile. UA showed trace leukocyte esterase. Patient does have symptoms of dysuria and frequency, I will empirically treat the patient with course of antibiotics. I had discussion with the patient about the importance of needing to see her urologist given that she has had numerous urinary tract infections in the past. Patient provided with referral information. Given these findings, the patient 's presentation is most consistent with urinary tract infection. I have a much lower clinical concern for pyelonephritis, nephrolithiasis, appendicitis, diverticulitis, constipation. PRESCRIPTIONS: Macrobid DISCHARGE: At this time, patient is stable for discharge and outpatient management. I have instructed the patient to follow-up with his/her primary care physician in 1-2 days. Patient should repeat UA in 2 weeks to check for resolution of urinary tract infection. If symptoms persist, patient may need to see a specialist for further examinations and testing. I have instructed the patient to promptly return to the ER at any time for any new or worsening symptoms including increased pain, fever, nausea, vomiting, urinary changes or weakness. The patient and/or family expressed understanding of and agreement with this plan. All questions were answered. Home care instructions were provided. Patient's blood pressure was elevated (>120/80) but appears stable without evidence of hypertensive emergency, hypertensive urgency or end-organ failure. I had discussion with the patient about the risks of hypertension. I have advised the patient to follow up with his/her primary care physician for outpatient monitoring and treatment for hypertension in 2-3 days. I have instructed the patient to return to the ER for any new or worsening symptoms including chest pain, shortness of breath, headache, blurred vision, confusion, nausea, vomiting or LOC. Departure Diagnosis: Primary Impression: UTI (urinary tract infection) Urinary tract infection type: site unspecified Hematuria presence: without hematuria Qualified Code: N39.0 - Urinary tract infection without hematuria, site unspecified Condition: Stable Patient Instructions: Understanding Urinary Tract Infections (UTIs) Referrals: DEE ESCOBAR (PCP) DIGNA DAILEY EUGENE MD GUALTIERI,GIOVANNY GUTIÉRREZ JENNIFER MD Additional Instructions: Call your primary care doctor TOMORROW for an appointment during the next 1-2 days.See the doctor sooner or return here if your condition worsens before your appointment time. See referral information for urologist given ongoing symptoms of dysuria and frequency. MASOOD STEWART PA-C Oct 12, 2016 20:27
[2016-10-12 20:34] VITALS: BP 171/79; PULSE 76; RESP 19; TEMP 97.6
== END 2016-10-12 20:34 | disposition home or self-care (01) ==
LOC: FTE 17:37
DX: N39.0 Urinary tract infection, site not specified (principal); I10 Essential (primary) hypertension
CPT/HCPCS: 81001; Z7502; 99283

== ENCOUNTER 2018-05-07 12:57 | Emergency (ER) | payer OTHER ==
[~2018-05-07] VITALS: Ht 170.2 cm; Wt 78.0 kg
[~2018-05-07 12:57] MED LIST changes: -ALBU8.5H3 INH; +ALBU8.5H8 INH; +AZIT250T PO; -AZIT250T94 PO; +FLUC150T PO; -FLUC150T17 PO; +NITR-58 PO
[2018-05-07 13:00] VITALS: Ht 170.2 cm; Wt 78.0 kg
--- NOTE | 2018-05-07 16:10 | ERD ---
ER Documentation Chief Complaint Chief Complaint Complains of chest congestion x 3 days HPI 63-year-old female complains of congestion and dry cough for 1 week. Denies fevers, chills, hemoptysis, night sweats, weight loss, fatigue, wheezing, short of breath.. She is also been having some nasal congestion and dryness of nasal mucosa. Patient also states she has been feeling tired. Denies lightheadedness, syncope, SOB, focal deficits. In addition she states that she has been having dysuria for 4 weeks and has history of UTIs. Denies hematuria, back pain. Denies allergies. ROS All systems reviewed and are negative except as per history of present illness. Medications Home Meds Active Scripts Sodium Chloride (Saline Nasal Mist) 126 Ml Mist, 2 SPRAYS NASAL TID PRN for dry nostrils for 10 Days, #1 BOTTLE 3 Refills Prov:AVIS SALES 05/07/18 Fluticasone Propionate (Flonase Allergy Relief) 9.9 Ml [place].susp, 2 SPRAY NASAL DAILY for congestion for 7 Days, #1 BOTTLE 0 Refills TO EACH NOSTRIL Prov:AVIS SALES 05/07/18 Acetaminophen* (Tylophen*) 500 Mg Capsule, 1 CAP PO Q6H PRN for PAIN AND OR ELEVATED TEMP, #20 CAP Prov:LUH SILVEIRA NP 09/27/17 Nitrofurantoin Monohyd Macrocr* (Macrobid*) 100 Mg Capsr, 100 MG PO BID for 5 Days, CAP Prov:MASOOD STEWART PA-C 10/12/16 Fluconazole* (Diflucan*) 150 Mg Tablet, 150 MG PO ONCE, #1 TAB Prov:DOMINIQUE SANCHEZ MD 09/26/16 Cephalexin* (Keflex*) 500 Mg Capsule, 500 MG PO TID for 7 Days, CAP Prov:DOMINIQUE SANCHEZ MD 09/26/16 Tramadol HCl (Tramadol HCl) 50 Mg Tablet, 50 MG PO Q6, #20 TAB Prov:JANA BEST NP 07/23/16 Acetaminophen* (Tylophen*) 500 Mg Capsule, 1 CAP PO Q6H PRN for PAIN AND OR ELEVATED TEMP, #20 CAP Prov:JANA BEST NP 07/23/16 Metronidazole* (Flagyl*) 500 Mg Tablet, 500 MG PO TID for 7 Days, TAB Prov:CHRISTIANA CRONIN PA-C 06/25/16 Azithromycin* (Zithromax*) 500 Mg Tablet, 500 MG PO DAILY for 3 Days, TAB Prov:CHRISTIANA CRONIN PA-C 06/25/16 Ondansetron (Ondansetron Odt) 4 Mg Tab.rapdis, 4 MG PO Q6H PRN for NAUSEA AND/OR VOMITING, #10 TAB Prov:CHRISTIANA CRONIN PA-C 06/25/16 Ciprofloxacin Hcl* (Ciprofloxacin Hcl*) 500 Mg Tablet, 500 MG PO BID for 7 Days, TAB Prov:MERVIN MOYA PA-C 02/11/16 Fluticasone Propionate (Flonase Allergy Relief) 9.9 Ml [place].susp, 1 SPRAY NASAL DAILY, #1 BOTTLE TO EACH NOSTRIL Prov:FERNY WEN NP 01/27/16 Clotrimazole* (Clotrimazole* AF) 1% - 30 Gm Cream.gm., 1 APPLIC TOP BID for 7 Days, TUB Prov:FERNY WEN NP 01/27/16 Albuterol Sulfate* (Proair HFA*) 8.5 Gm Hfa.aer.ad, 2 PUFF INH Q4, #1 INHALER Prov:MERVIN MOYA PA-C 01/13/16 Ciprofloxacin Hcl* (Ciprofloxacin Hcl*) 500 Mg Tablet, 500 MG PO BID for 10 Day s, TAB Prov:MERVIN MOYA PA-C 01/13/16 Triamcinolone Acetonide (Triamcinolone Acetonide) 0.5% - 15 Gm Oint..gm., 1 APPLIC TOP BID, #1 TUB Prov:EDILMA RIVERA DO 12/15/15 Prednisone* (Prednisone*) 20 Mg Tab, 40 MG PO DAILY for 4 Days, TAB Prov:ADRIANA RIVERARAM DO 12/15/15 Prednisone* (Prednisone*) 20 Mg Tab, 40 MG PO DAILY for 4 Days, TAB Prov:CUAUHTEMOC ALTAMIRANO DO 11/04/15 Albuterol Sulfate* (Ventolin HFA*) 18 Gm Hfa.aer.ad, 2 PUFF INHALATION Q4H, #1 INHALER Prov:SHORTY DA SILVA-C 09/10/15 Prednisone* (Prednisone*) 20 Mg Tab, 40 MG PO DAILY for 4 Days, TAB Prov:SHORTY DA SILVA PA-C 09/10/15 Acetaminophen* (Tylenol*) 325 Mg Tablet, 2 TAB PO Q6 PRN for PAIN AND OR ELEVATED TEMP, #20 TAB Prov:FERNY WEN R. [employer]ER 07/08/15 Guaifenesin/Codeine Phosphate (CHERATUSSIN AC SYRUP) 118 Ml Liquid, 10 ML PO Q6H PRN for COUGH, #118 ML Prov:MARION WENAH R. [employer]ER 07/08/15 Ibuprofen* (Motrin*) 600 Mg Tab, 600 MG PO Q6, #14 TAB Prov:EDWARD DE LA ROSA MD 05/06/15 Clotrimazole* (Lotrimin* AF) 1% - 24 Gm Cream.gm., 1 APPLIC TOP BID for 7 Days, TUB Prov:EDWARD DE LA ROSA MD 05/06/15 Fluconazole* (Diflucan*) 150 Mg Tablet, 150 MG PO ONCE, #1 TAB Prov:EDWARD DE LA ROSA MD 05/06/15 Prednisone* (Prednisone*) 20 Mg Tab, 60 MG PO DAILY for 5 Days Prov:AVIS HOLLOWAY 10/26/14 Azithromycin* (Zithromax*) 250 Mg Tablet, 250 MG PO .ZPACK DIRECTED, #6 TAB TAKE 500 MG (2 TABS) THE FIRST DAY THEN 250 MG (1 TAB) DAYS 2-5 Prov:AVIS HOLLOWAY 10/26/14 Albuterol Sulfate* (Albuterol Sulfate* HFA) 8.5 Gm Hfa.aer.ad, 1-2 PUFF INH Q4 PRN for SHORTNESS OF BREATH, #1 EA Prov:AVIS HOLLOWAY 10/26/14 Reported Medications Pravastatin Sodium* (Pravastatin Sodium*) 10 Mg Tablet, 10 MG PO HS, TAB 11/04/15 Sertraline Hcl* (Zoloft*) 100 Mg Tablet, 100 MG PO DAILY, #30 TAB 11/04/15 Amlodipine Besylate* (Norvasc*) 5 Mg Tablet, 5 MG PO DAILY, TAB 11/04/15 Pantoprazole* (Pantoprazole*) 40 Mg Tablet.dr, 40 MG PO DAILY, TAB 11/04/15 Allergies Allergies: Coded Allergies: No Known Allergy (Unverified , 01/27/16) PMhx/Soc History of Surgery: Yes (finger surgery) Anesthesia Reaction: No Hx Neurological Disorder: No Hx Respiratory Disorders: No Hx Cardiac Disorders: Yes (htn, dyslipidemia) Hx Psychiatric Problems: No Hx Miscellaneous Medical Probl: No (ARTHRITIS) Hx Alcohol Use: No Hx Substance Use: No Hx Tobacco Use: No Physical Exam Vitals Vital Signs Date Temp Pulse Resp B/P (MAP) Pulse Ox O2 O2 Flow FiO2 Time Delivery Rate 05/07/18 74 16 152/71 99 Room Air 16:29 (98) 05/07/18 98.1 84 20 157/77 96 13:00 (103) Physical Exam General: Well developed, well nourished. No acute distress. Throat: No tonsillar erythema, edema, or exudates noted bilaterally. No masses, lesions, or abscesses noted. Uvula midline. Airway patent. Heart: RR w/o murmur, rubs, or gallops. Lungs: Clear to auscultation bilaterally w/o wheezes, crackles, rhonchi. Symmetric rise and fall. Equal breath sounds. Abdomen: Soft, nontender, with no rigidity or guarding noted. No masses, lesions, or ecchymoses. Normoactive bowel sounds. No McBurney's point tenderness. Patient ambulatory. No tenderness to palpation in splenic area or splenomegaly. No CVA tenderness. Psych: Normal mood and affect. Result Diagram: 05/07/18 1530 05/07/18 1530 Results 24 hrs Laboratory Tests Test 05/07/18 15:26 05/07/18 15:30 Urine Color COLORLESS Urine Clarity CLEAR Urine pH 7.0 Urine Specific [place] 1.005 Urine Ketones NEGATIVE mg/dL Urine Nitrite NEGATIVE mg/dL Urine Bilirubin NEGATIVE mg/dL Urine Urobilinogen NEGATIVE mg/dL Urine Leukocyte Esterase NEGATIVE Nino/ul Urine Hemoglobin NEGATIVE mg/dL Urine Glucose NEGATIVE mg/dL Urine Total Protein NEGATIVE mg/dl White Blood Count 9.8 10^3/ul Red Blood Count 5.62 10^6/ul Hemoglobin 16.3 g/dl Hematocrit 49.3 % Mean Corpuscular Volume 87.7 fl Mean Corpuscular Hemoglobin 29.0 pg Mean Corpuscular Hemoglobin Concent 33.1 g/dl Red Cell Distribution Width 13.4 % Platelet Count 258 10^3/UL Mean Platelet Volume 11.2 fl Immature Granulocytes % 0.200 % Neutrophils % 68.3 % Lymphocytes % 22.3 % Monocytes % 6.8 % Eosinophils % 1.9 % Basophils % 0.5 % Nucleated Red Blood Cells % 0.0 /100WBC Immature Granulocytes # 0.020 10^3/ul Neutrophils # 6.7 10^3/ul Lymphocytes # 2.2 10^3/ul Monocytes # 0.7 10^3/ul Eosinophils # 0.2 10^3/ul Basophils # 0.1 10^3/ul Nucleated Red Blood Cells # 0.0 10^3/ul Sodium Level 142 mmol/L Potassium Level 3.8 mmol/L Chloride Level 105 mmol/L Carbon Dioxide Level 26 mmol/L Anion Gap 11 Blood Urea Nitrogen 21 mg/dl Creatinine 0.61 mg/dl Est Glomerular Filtrat Rate mL/min > 60 mL/min Glucose Level 107 mg/dl Calcium Level 9.9 mg/dl Total Bilirubin 0.3 mg/dl Direct Bilirubin 0.00 mg/dl Indirect Bilirubin 0.3 mg/dl Aspartate Amino Transf (AST/SGOT) 48 IU/L Alanine Aminotransferase (ALT/SGPT) 48 IU/L Alkaline Phosphatase 100 IU/L Total Protein 8.7 g/dl Albumin 4.9 g/dl Globulin 3.80 g/dl Albumin/Globulin Ratio 1.28 Procedures/MDM DIAGNOSTIC IMAGING REPORT Patient: RYAN GUERRA : 1955 Age: 63 Sex: F MR #: [id number] DOS: 05/07/18 0000 Ordering MD: AVIS SALES Location: [facility] Room/Bed: PROCEDURE: XR Chest. CLINICAL INDICATION: Cough and chest pain TECHNIQUE: Single portable view of the chest was obtained COMPARISON: CR CHEST 12/17/2015; CR CHEST 11/04/2015; CR CHEST 09/10/2015 FINDINGS: The trachea is midline. The cardiac silhouette and pulmonary vascularity are within normal limits. The lungs are clear. The costophrenic angles are sharp. IMPRESSION: 1. No evidence of acute cardiopulmonary disease. RPTAT: AAPP Physician [place] Date Time Electronically viewed and signed by Cristina Morse Physician on 05/07/2018 15:46 JL/ CC: RACHANAJUDIAVIS DUCKWORTH [id number] ER Course: CXR, UA, UC, CBC, CMP. All WNL MDM: 63-year-old female complains of congestion and dry cough for 1 week. De nies fevers, chills, hemoptysis, night sweats, weight loss, fatigue, wheezing, short of breath.. She is also been having some nasal congestion and dryness of nasal mucosa. Patient also states she has been feeling tired. Denies lightheadedness, syncope, SOB, focal deficits. In addition she states that she has been having dysuria for 4 weeks and has history of UTIs. I have low suspicion for strep throat based on patient not meeting centor criteria for rapid strep testing. I have low suspicion for bacterial sinusitis. I have low suspicion for pneumonia, tuberculosis, meningitis, or other life threatening etiology based on patient history and exam findings. CBC and CMP were done to address patients complaint of feeling tired, were WNL. CXR was done due to patients age and history of cough, was negative. UA/UC was done due to address dysuria, was negative. Most likely etiology is viral URI and no further tests are necessary. Patient given rx for flonase for congestion and intransal saline for dryness. Patient adivsed to rest and stay well hydrated. Patient discharged with strict ER precautions. Patient advised to follow up with PMD. All questions answered at discharge. Departure Diagnosis: Primary Impression: URI (upper respiratory infection) URI type: unspecified viral URI Qualified Codes: J06.9 - Acute upper respiratory infection, unspecified Additional Impressions: Dry cough Dysuria Condition: Stable AVIS SALES May 07, 2018 16:10
[2018-05-07] MEDS ORDERED: FLUT9.9S NASAL (16:13)
[2018-05-07] MEDS ORDERED: SODI126M NASAL (16:16)
[2018-05-07 16:29] VITALS: BP 152/71; PULSE 74; RESP 16
== END 2018-05-07 16:29 | disposition home or self-care (01) ==
LOC: FTE 12:57
DX: J06.9 Acute upper respiratory infection, unspecified (principal); R30.0 Dysuria; I10 Essential (primary) hypertension
CPT/HCPCS: 71045; 80053; 81003; 85025; 87086

== ENCOUNTER 2018-10-20 09:22 | Emergency (ER) | payer OTHER, BC ==
[~2018-10-20] VITALS: Ht 160 cm; Wt 59.8 kg
[~2018-10-20 09:22] MED LIST changes: -ACET325T33 PO; -ACET500C5 PO; -ALBU18HF INHALATION; -ALBU8.5H8 INH; -AZIT250T PO; -AZIT500T3 PO; -CIPR500T4 PO; -CLOT24CR4 TOP; -CLOT30CR24 TOP; -FLUC150T PO; -FLUT9.9S NASAL; -GUAI118L22 PO; +HYDR50TA15 PO; -IBUP-1542 PO; -METR500T PO; -NITR-58 PO; -ONDA4TAB14 PO; -PRED20TA PO; -TRIA15OI9 TOP
[2018-10-20 09:24] VITALS: BP 120/60; PULSE 65; RESP 18; Ht 160 cm; Wt 59.8 kg
[2018-10-20] MEDS ORDERED: HYDR25SU23 PR (09:50)
[2018-10-20] MEDS ORDERED: DOCU-144 PO (09:52)
--- NOTE | 2018-10-20 10:10 | ERD ---
ER Documentation Chief Complaint Chief Complaint POSSIBLE HEMORRHOIDS HAS PAIN AT THE SITE HPI 63-year-old female presenting with hemorrhoids x2 weeks. Patient states she has pain at the anus. She denies any fevers. Denies abdominal pain. Denies changes in urination. Denies other medical problems. NKDA. Surgical history ankle surgery. Social history denies ROS All systems reviewed and are negative except as per history of present illness. Medications Home Meds Active Scripts Docusate Sodium* (Colace*) 100 Mg Capsule, 100 MG PO TID, #30 CAP Prov:MERVIN MOYA PA-C 10/20/18 Hydrocortisone Acetate (Anusol-Hc) 25 Mg Supp.rect, 1 SUPP [place] BID PRN for HEMORROID PAIN/ITCHING, #30 SUPP.RECT Prov:MERVIN MOYA PA-C 10/20/18 Cephalexin* (Keflex*) 500 Mg Capsule, 500 MG PO QID for 5 Days, CAP Prov:DOMINIQUE SANCHEZ MD 06/16/18 Tramadol HCl (Tramadol HCl) 50 Mg Tablet, 50 MG PO Q6, #20 TAB Prov:JANA BEST NP 07/23/16 Albuterol Sulfate* (Albuterol Sulfate* HFA) 8.5 Gm Hfa.aer.ad, 1-2 PUFF INH Q4 PRN for SHORTNESS OF BREATH, #1 EA Prov:AVIS HOLLOWAY 10/26/14 Reported Medications Hydroxyzine Hcl* (Hydroxyzine Hcl*) 50 Mg Tablet, 50 MG PO QHS, #40 TAB 06/16/18 Pravastatin Sodium* (Pravastatin Sodium*) 10 Mg Tablet, 10 MG PO HS, TAB 11/04/15 Sertraline Hcl* (Zoloft*) 100 Mg Tablet, 100 MG PO DAILY, #30 TAB 11/04/15 Amlodipine Besylate* (Norvasc*) 5 Mg Tablet, 5 MG PO DAILY, TAB 11/04/15 Pantoprazole* (Pantoprazole*) 40 Mg Tablet.dr, 40 MG PO DAILY, TAB 11/04/15 Allergies Allergies: Coded Allergies: No Known Allergy (Unverified , 06/16/18) PMhx/Soc History of Surgery: Yes (finger surgery) Anesthesia Reaction: No Hx Neurological Disorder: No Hx Respiratory Disorders: No Hx Cardiac Disorders: Yes (htn, dyslipidemia) Hx Psychiatric Problems: No Hx Miscellaneous Medical Probl: No (ARTHRITIS) Hx Alcohol Use: No Hx Substance Use: No Hx Tobacco Use: No Smoking Status: Never smoker FmHx Family History: No diabetes, No coronary disease, No other Physical Exam Vitals Vital Signs Date Temp Pulse Resp B/P (MAP) Pulse Ox O2 O2 Flow FiO2 Time Delivery Rate 10/20/18 98.1 65 18 120/60 99 09:24 (80) Physical Exam GENERAL: The patient is well-appearing, well-nourished, in no acute distress CHEST: Clear to auscultation bilaterally. There are no rales, wheezes or rhonchi. HEART: Regular rate and rhythm. No murmurs, clicks, rubs or gallops. No S3 or S4. ABDOMEN:Soft, nontender and nondistended. Good bowel sounds. No rebound or guarding. No gross peritonitis. No gross organomegaly or masses. SKIN: Hemorrhoids noted. No bleeding hemorrhoids. Procedures/MDM MDM: 63 yr old female complaining of hemorrhoids. I have low suspicion for abscess. I have low suspicion for bleeding abnormality. Patient is discharged with supportive medications and told to follow-up with primary care within 1 to 2 days for close evaluation. Patient is discharged with strict ER precautions. All questions answered at discharge Departure Diagnosis: Primary Impression: Hemorrhoid Condition: Stable Patient Instructions: Hemorrhoids Referrals: [facility] YOU HAVE RECEIVED A MEDICAL SCREENING EXAM AND THE RESULTS INDICATE THAT YOU DO NOT HAVE A CONDITION THAT REQUIRES URGENT TREATMENT IN THE EMERGENCY DEPARTMENT. FURTHER EVALUATION AND TREATMENT OF YOUR CONDITION CAN WAIT UNTIL YOU ARE SEEN IN YOUR DOCTORS OFFICE WITHIN THE NEXT 1-2 DAYS. IT IS YOUR RESPONSIBILITY TO MAKE AN APPOINTMENT FOR FOLOW-UP CARE. IF YOU HAVE A PRIMARY DOCTOR --you should call your primary doctor and schedule an appointment IF YOU DO NOT HAVE A PRIMARY DOCTOR YOU CAN CALL OUR PHYSICIAN REFERRAL HOTLINE AT IF YOU CAN NOT AFFORD TO SEE A PHYSICIAN YOU CAN CHOSE FROM THE FOLLOWING [facility] [address] [facility]. [facility] [address] [facility] [address] [facility] [address] [facility]. [facility] [address] [facility] [address] Additional Instructions: FOLLOW UP WITH YOUR PRIMARY CARE PHYSICIAN TOMORROW.Return to this facility if you are not improving as expected. MERVIN MOYA PA-C Oct 20, 2018 10:10
[2018-10-20] MEDS ORDERED: HC30CR25 TOP (11:36)
== END 2018-10-20 10:13 | disposition home or self-care (01) ==
LOC: FTE 09:22
DX: K64.9 Unspecified hemorrhoids (principal); I10 Essential (primary) hypertension
CPT/HCPCS: 99283